=== PATIENT | male | born 1945 | race Caucasian/White ===

== ENCOUNTER 2022-12-05 14:31 | Emergency (ER) | payer OTHER, MEDICARE ==
[~2022-12-05] VITALS: Ht 177.8 cm; Wt 70.5 kg
[2022-12-05 16:41] VITALS: BP 137/83
[2022-12-05] MEDS ORDERED: HYDROcodone/acetaminophen 5mg/325mg tablet PO ONE (17:30)
[2022-12-05] MEDS ORDERED: CYCL-1 PO (18:15)
== END 2022-12-05 18:24 | disposition home or self-care (01) ==
LOC: ER 14:31
DX: S00.83XA Contusion of other part of head, initial encounter (principal); S13.4XXA Sprain of ligaments of cervical spine, initial encounter; I10 Essential (primary) hypertension; F41.9 Anxiety disorder, unspecified; Z79.899 Other long term (current) drug therapy; V89.2XXA Person injured in unspecified motor-vehicle accident, traffic, initial encounter; Y93.89 Activity, other specified; Y92.89 Other specified places as the place of occurrence of the external cause; Y99.8 Other external cause status
CPT/HCPCS: 70450; 70486; 72125; 72128; 99284

== ENCOUNTER 2025-07-15 22:30 | Emergency (ER) | payer OTHER, MEDICARE ==
[~2025-07-15] VITALS: Ht 175.3 cm; Wt 63.6 kg
[~2025-07-15 22:30] MED LIST: CYCL-1 PO
[2025-07-15 22:43] VITALS: BP 125/70; PULSE 83; RESP 16
--- NOTE | 2025-07-16 00:12 | Physician Documentation ---
History of Present Illness ~ General Chief Complaint: HAZMAT Exposure Stated Complaint: INGESTION ERROR Time Seen by MD: 23:55 Primary Medical Doctor: WHITLEY/ CHILO CLOUD History of Present Illness Initial Comments 79-year-old male who presents with concern for exposure to chemical He tells me that he was cleaning his toilet with a chemical auto cleaner he got at [employer]. When he put it in his toilet and added water, it spread fumes throughout the bathroom and he did breathe them in. This occurred about 2 hours ago. He presents now with concern for exposure. He denies any significant skin rashes or itching or burning to the skin. No itching or burning to his eyes. No difficulty breathing or current coughing. No nausea or vomiting. No other acute symptoms at this time Medication Reconciliation Allergies: Coded Allergies: No Known Allergies (Unverified , 07/15/25) Scheduled Cyclobenzaprine* (Cyclobenzaprine*), 1 TAB PO Q8H Past Medical History Past Medical History: Hypertension, *PSYCH*, Anxiety, Depression Past Surgical History: orthopedic surgeries Alcohol Use: Occasionally Drug Use: none Lives with: Spouse Lives In: Home Review of Systems All Other Systems at this time: Reviewed and Negative Physical Exam Physical Exam Vital Signs: Heart Rate: 83, Respiratory Rate: 16, BP: 125/70, Pulse Oximetry: 98, Weight: 63.640 Physical Exam General: This is an extremely anxious but otherwise well-appearing thin elderly man HEENT: Atraumatic, oropharynx is moist, no intraoral lesions. No conjunctival injection Heart: Regular rate and rhythm, normal-appearing peripheral perfusion Lungs: Clear breath sounds bilateral, no wheezing. No coughing noted during my exam, normal work of breathing, normal oxygen saturation on room air Abdomen: Soft, nondistended, nontender all quadrants Skin: No rashes Neuro: Alert and oriented Psychiatric: Extremely anxious about his condition but is cooperative with exam Progress Results/Orders Results/Orders Vital Signs 07/15/25 07/16/25 22:43 01:46 Temp 98.2 Pulse 83 Resp 16 B/P (MAP) 125/70 Pulse Ox 98 99 Consults/PCP Consults/PCP : Additional Comment Consult: Poison Center was consulted for recommendations. They state that if he is not having any significant symptoms, there is no further treatment needed. Medical Decision Making Additional information obtaine: N/A Findings na Differential Diagnosis Chemical exposure, pneumonitis, skin burn, anxiety Assessment The patient presents with a possible chemical exposure. Here in the ED he is very well-appearing, has no evidence of dangerous exposure including no skin changes, eye changes, lung changes, or stomach changes. Poison control was contacted as above. The patient was reassured, and will be discharged home with a mask and gloves to help clean up the chemicals in his house. Departure Time of Disposition: 00:45 Disposition: 01 HOME / SELF CARE / HOMELESS Impression: Primary Impression: Chemical exposure Condition: Stable Discharge Instructions: Chemical Inhalation Injury, Adult Referrals: NO PRIMARY CARE PROVIDER (PCP) Education Educated: Patient Educated regarding: diagnosis, treatment, need for follow up Signature Scribe Signature: na Attestation: CLARK Estrella MD Jul 16, 2025 00:12
[2025-07-16 01:46] VITALS: TEMP 98.2; O2SAT 99
== END 2025-07-16 01:47 | disposition home or self-care (01) ==
LOC: ER 22:31
DX: Z77.098 Contact with and (suspected) exposure to other hazardous, chiefly nonmedicinal, chemicals (principal); I10 Essential (primary) hypertension; F41.9 Anxiety disorder, unspecified; F32.A Depression, unspecified; Z79.899 Other long term (current) drug therapy; Z72.89 Other problems related to lifestyle; Z98.890 Other specified postprocedural states
CPT/HCPCS: 99282